=== PATIENT | male | born 1990 | race Asian ===

== ENCOUNTER 2020-09-14 10:58 | Outpatient (CLI) | payer BC, MEDICAID, SELFPAY ==
[2020-09-14 12:05] LABS: Basophils Percent Auto 0.6 % (0.2-1.2); Eosinophils Absolute Auto 0.4 K/mm3 (0-0.3); Eosinophils Percent Auto 5.7 % (0-4.4); Hematocrit 41.3 % (42.0-52.0); Hemoglobin 14.7 g/dL (14.0-18.0); Immature Granulocyte Absolute 0.02 K/mm3 (0.00-0.031); Immature Granulocyte Percent A 0.3 % (0-0.5); Lymphocytes Absolute Auto 2.41 K/mm3 (0.9-3.2); Lymphocytes Percent Auto 34.3 % (18.3-44.2); Mean Corpuscular HGB Conc 35.6 g/dl (32-36); Mean Corpuscular Hemoglobin 28.2 pg (26-34); Mean Corpuscular Volume 79.3 fl (80-100); Mean Platelet Volume 9.8 fl (7.4-10.4); Monocytes Absolute Auto 0.4 K/mm3 (0.1-0.6); Monocytes Percent Auto 6.3 % (2.6-8.5); Neutrophils Absolute Auto 3.7 K/mm3 (1.3-6.7); Neutrophils Percent Auto 52.8 % (45.5-73.1); Platelet Count Result 282 k/mm3 (150-375); Red Blood Count 5.21 M/mm3 (4.6-6.20)
[2020-09-14 12:19] LABS: Alanine Aminotransferase 45 U/L (4-50); Albumin Level 4.1 g/dL (3.5-5.1); Alkaline Phosphatase 58 U/L (38-126); Anion Gap 4 mmol/L (8-16); Aspartate Amino Transferase 31 U/L (17-59); Bilirubin,Total 0.4 mg/dL (0.2-1.3); Blood Urea Nitrogen 11 mg/dL (9-20); Calcium 8.9 mg/dL (8.4-10.2); Carbon Dioxide 30 mmol/L (22-30); Chloride 104 mmol/L (98-107); Cholesterol 131 mg/dL (0-200); Estimated Glomerular Filt Rate > 60; Glucose 91 mg/dL (75-110); HDL Direct 47 mg/dL; Sodium 138 mmol/L (137-145); Triglycerides 84 mg/dL (<150)
[2020-09-14 12:30] LABS: LDL Cholesterol Direct 58 mg/dL
[2020-09-14 12:37] LABS: Hemoglobin A1C 5.3 % (<5.7)
[2020-09-14 12:50] LABS: Thyroid Stimulating Hormone 0.949 uIU/mL (0.465-4.680)
== END 2020-09-14 10:59 | disposition home or self-care (01) ==
PROVIDERS: PCP Internal Medicine; Visit Provider Internal Medicine
DX: Z00.00 Encounter for general adult medical examination without abnormal findings (principal); Z13.1 Encounter for screening for diabetes mellitus; Z13.29 Encounter for screening for other suspected endocrine disorder
CPT/HCPCS: 36415; 80053; 80061; 83036; 84443; 85025

== ENCOUNTER 2020-12-23 05:15 | Emergency (ER) | payer BC, SELFPAY ==
--- NOTE | ~2020-12-23 | XR_ITS ---
EXAMINATION: XR chest 2V DATE: 12/23/2020 05:51 INDICATION: Cough and midsternal chest pain TECHNIQUE: PA and lateral views of the chest were obtained. COMPARISON: None FINDINGS: The lungs are clear with no focal airspace opacities, pulmonary edema, pleural effusion or pneumothor ax. The cardiomediastinal silhouette is normal. Mild thoracic spondylosis. IMPRESSION: 1. No acute cardiopulmonary disease. Reviewed, dictated and finalized at location A.
--- NOTE | 2020-12-23 05:18 | ECG_ITS ---
Measurements Intervals [place] Rate: 68 P: 43 [place]: 179 QRS: 49 QRSD: 106 T: 57 QT: 357 QTc: 380 Interpretive Statements SINUS RHYTHM INCOMPLETE RIGHT BUNDLE BRANCH BLOCK BASELINE ARTIFACT- II, III, AVF BORDERLINE ECG Electronically Signed On 12-23-2020 6:58:45 CDT by Simon Ghotra D.O.
[2020-12-23 05:22] VITALS: BP 149/89; PULSE 72; RESP 20; TEMP 36.9; O2SAT 100
--- NOTE | 2020-12-23 05:23 | ED.GENADULT ---
HPI - General Adult General Chief complaint: Chest Pain Stated complaint: chest pain/cough Time Seen by Provider: 12/23/20 05:19 History of Present Illness HPI narrative: Patient 30-year-old gentleman who presents the emergency department with chief complaint of chest pain. Patient reports that he woke up from sleep tonight had some sharp discomfort in his chest. Patient reports that he has been coughing reports that it hurts whenever he takes a deep breath and when he moves around. Patient denies history of hypertension denies history of connective tissue disorder or clotting disorder. Related Data Allergies Allergy/AdvReac Type Severity Reaction Status Date / Time No Known Allergies Allergy Verified 12/23/20 05:16 Review of Systems Review of Systems: Narrative: A 10 system review of systems was completed on the patient and is negative except for what is stated in the HPI. Nursing and ancillary documentation was reviewed. [facility] Past Medical History Medical History Hyperlipidemia Family History Family History Mother Patient's mother is in good health Father Patient's father is in good health Sibling Patient's brother is in good health Social History Social History Smoking status: Never smoker Alcohol intake: current Exam Narrative: Exam Narrative: GENERAL: Well-appearing, well-nourished, and in no acute distress. HEAD: Normocephalic, atraumatic. EYES: PERRLA and EOMI. ENT: Nares clear, no rhinorrhea or epistaxis. Mucous membranes moist. NECK: Supple. CHEST: Clear to auscultation. No respiratory distress. Chest wall is tender to palpation in the left sternal border HEART: Regular rate and rhythm. No murmur heard. Normal peripheral pulses. ABDOMEN: Soft, nontender, nondistended, normal active bowel sounds. EXTREMITIES: Normal range of motion. No edema. SKIN: Warm, dry, no rash. NEURO: No focal deficits. Alert and oriented x3. PSYCH: Normal mood and affect. Course Vital Signs Vital signs: Vital Signs Temperature 36.9 C 12/23/20 05:22 Pulse Rate 72 12/23/20 05:22 Respiratory Rate 20 12/23/20 05:22 Blood Pressure 149/89 H 12/23/20 05:22 Pulse Oximetry 100 12/23/20 05:22 Temperature 36.9 C 12/23/20 05:22 Pulse Rate 79 12/23/20 06:24 Respiratory Rate 20 12/23/20 06:24 Blood Pressure 141/81 H 12/23/20 06:24 Pulse Oximetry 100 12/23/20 06:24 Medical Decision Making Vital Signs Vital Signs: Vital Signs Temperature 36.9 C 12/23/20 05:22 Pulse Rate 72 12/23/20 05:22 Respiratory Rate 20 12/23/20 05:22 Blood Pressure 149/89 H 12/23/20 05:22 Pulse Oximetry 100 12/23/20 05:22 Temperature 36.9 C 12/23/20 05:22 Pulse Rate 79 12/23/20 06:24 Respiratory Rate 20 12/23/20 06:24 Blood Pressure 141/81 H 12/23/20 06:24 Pulse Oximetry 100 12/23/20 06:24 Discharge Plan Discharge Clinical Impression: Acute chest wall pain Patient Disposition: Home, Self-Care Condition: Stable Instructions: Antibiotic Form, Chest Wall Pain (ED) Prescriptions: New methocarbamol 750 mg tablet 750 mg PO Q4H PRN (Reason: muscle spasm) Qty: 30 RF: 0 ibuprofen 800 mg tablet 800 mg PO TID PRN (Reason: pain) Qty: 21 RF: 0 No Action albuterol sulfate 90 mcg/actuation HFA aerosol inhaler See Rx Instructions .ROUTE .COMPLEX Qty: 18 RF: 0 Follow-up/Referrals: Adarsh Hinton DO [Primary Care Provider] - Time of Disposition: 06:33
[2020-12-23] MEDS: KETOROLAC (*BKC) 60 MG/2 ML VIAL IM (05:28)
[2020-12-23 06:24] VITALS: BP 141/81; PULSE 79; RESP 20; O2SAT 100
[2020-12-23 06:43] VITALS: BP 141/74; PULSE 81; RESP 23; O2SAT 100
== END 2020-12-23 06:43 | disposition home or self-care (01) ==
PROVIDERS: Emergency Provider Emergency Medicine; PCP Internal Medicine
DX: R07.81 Pleurodynia (principal)
CPT/HCPCS: 71046; 93005; 96372; 99283; J1885